=== PATIENT | male | born 1995 | race Caucasian/White ===

== ENCOUNTER 2018-07-09 01:27 | Emergency (ER) | payer OTHER ==
--- NOTE | 2018-07-09 01:30 | EDPHY ---
H & P Time Seen by Provider: 07/09/18 01:29 HPI/ROS: CHIEF COMPLAINT: Suspected alcohol abuse HISTORY OF PRESENT ILLNESS: 22 year old male arrives via ambulance for suspected alcohol abuse. Admits to the alcohol and hallucinogenic mushroom use. Patient unable to ambulate without assistance. No reports of trauma or assault. No fall from height. No structures of height near patient. IV Zofran pre-hospital secondary to vomiting. REVIEW OF SYSTEMS: 10 systems reviewed and negative with the exception of the elements mentioned in the history of present illness PAST MEDICAL/SURGICAL HISTORY: no anticoagulant use, no relevant medical/ surgical history SOCIAL HISTORY: Positive for witnessed and self disclosed alcohol use PHYSICAL EXAM 1) GENERAL: Well-developed, well-nourished, alert and oriented. Appears to be in no acute distress. Answering questions appropriately.Smells of alcohol. Vomit on clothing and shoes 2) HEAD: Normocephalic, atraumatic 3) HEENT: Pupils equal, round, reactive to light bilaterally. Negative Horners. Nasopharynx, oropharynx, clear. No deformity or angulation of nose. No septal hematoma. No rhinorrhea. No oral trauma. Ears bilaterally with normal tympanic membranes. No hemotympanum. No fluid or blood in the external auditory canal. No raccoon eyes. No Early sign. Teeth are normally aligned with no gross malocclusion, TMJ bilaterally nontender, facial bones nontender including the zygomatic arch, maxilla mandible. 4) NECK: No cervical collar is on. Posterior cervical spine is nontender, no stepoff, no effusion. Full range of motion which does not elicit any midline cervical spine pain, no posterior midline tenderness, no step-off. 5) LUNGS: Clear to auscultation bilaterally, no wheezes, no rhonchi, no retractions. No obvious signs of trauma. No chest wall pain. No flaring, no grunting. Moving symmetrically. No crepitus. 6) HEART: [Regular rate and rhythm, 7) ABDOMEN: No guarding, no rebound, no focal tenderness, no peritoneal signs, no signs of trauma, no ecchymosis 8) MUSCULOSKELETAL: Moving all extremities, no focal areas of tenderness, no obvious trauma. 9) BACK: No midline vertebral tenderness, no fluctuance, no step-off, no obvious trauma, no visual or palpable abnormality. 10) SKIN: No laceration. No abrasion DIFFERENTIAL DIAGNOSIS: In no particular orderincluding but not limited to hypoglycemia, infectious process, electrolyte abnormality, head injury and intoxicants. (Andi Li) Constitutional: Initial Vital Signs Temperature (C) 36.4 C 07/09/18 01:43 Heart Rate 69 07/09/18 01:43 Respiratory Rate 18 07/09/18 01:43 Blood Pressure 133/86 H 07/09/18 01:43 O2 Sat (%) 93 07/09/18 01:43 O2 Delivery Mode Room Air Allergies/Adverse Reactions: No Known Allergies Allergy (Unverified 07/09/18 01:43) Home Medications: Medication Instructions Recorded NK [No Known Home Meds] 07/09/18 Medical Decision Making Other Provider: 0200 care assumed from ISHAAN Li pending improvement in her mental status and ability to ambulate in the emergency department 0540 Patient is now awake and appropriate. Ambulating unassisted to the bathroom. No current complaints. Patient is tolerating oral fluids. Patient is ready for discharge with sober ride. (Aleksey Han) Departure - Departure Disposition: Home, Routine, Self-Care Clinical Impression: Alcohol abuse Condition: Good Instructions: Abuse of Alcohol (ED) Referrals: [facility] 24 Hours [Outside] - 1 day without fail
[2018-07-09 06:06] VITALS: BP 126/74
== END 2018-07-09 06:36 | disposition home or self-care (01) ==
DX: F10.129 Alcohol abuse with intoxication, unspecified (principal); F16.129 Hallucinogen abuse with intoxication, unspecified; R11.10 Vomiting, unspecified